=== PATIENT | female | born 1985 | race Caucasian/White ===

== ENCOUNTER 2017-01-31 07:45 | Emergency (ER) | payer SELFPAY ==
[2017-01-31] MEDS ORDERED: Naproxen 500 MG TAB ONE (08:27)
[2017-01-31] MEDS ORDERED: Ondansetron ODT 4 MG TAB ONE (08:27)
[2017-01-31] MEDS ORDERED: HYDROcodone/Acetaminophen 10/325 mg Tablet ONE (08:27)
[2017-01-31] MEDS ORDERED: Diazepam 5 MG TAB ONE (08:27)
== END 2017-01-31 08:45 | disposition home or self-care (01) ==
LOC: MADERS 07:45
DX: M62.830 Muscle spasm of back (principal); M62.838 Other muscle spasm; F17.210 Nicotine dependence, cigarettes, uncomplicated
CPT/HCPCS: 99283; Q0162